=== PATIENT | female | born 1960 | race Two or more races ===

== ENCOUNTER 2021-11-19 10:37 | Day surgery (SDC) | payer OTHER ==
[~2021-11-19 10:37] MED LIST: ZESTRIL10 M1 PO
== END 2021-11-19 22:00 | disposition home or self-care (01) ==
LOC: CIR.AMB 10:37
PROVIDERS: ATTEND Orthopaedic Surgery Hand Surgery
DX: S42.411A Displaced simple supracondylar fracture without intercondylar fracture of right humerus, initial encounter for closed fracture (principal); Z88.0 Allergy status to penicillin; I10 Essential (primary) hypertension; R73.03 Prediabetes